=== PATIENT | male | born 1980 | race Caucasian/White ===

== ENCOUNTER 2021-07-20 18:26 | Emergency (ER) | payer MEDICARE ==
[2021-07-20 19:32] LABS: BILIRUBIN NEGATIVE (NEGATIVE); BLOOD 1+ Ery/uL (NEGATIVE); CLARITY CLEAR (CLEAR); COLOR YELLOW (YELLOW); GLUCOSE (U) NORMAL (NORMAL); LEUKOCYTES NEGATIVE Leu/uL (NEGATIVE); NITRITE NEGATIVE (NEGATIVE); PROTEIN NEGATIVE (NEGATIVE); SPECIFIC GRAVITY 1.025 (1.001-1.030); UROBILINOGEN 0.2 mg/dL (0.2-1.0)
[2021-07-20 19:38] LABS: SQUAMOUS EPITHELIAL CELLS RARE
[2021-07-20 21:31] LABS: BASOPHIL 0.5 % (0-2); EOSINOPHIL 4.2 % (0-5); HCT 47.3 % (42.0-52.0); HGB 16.2 g/dl (13.2-18.0); LYMPHOCYTE 16.5 % (15-48); MCH 29.7 pg (25.0-31.0); MCHC 34.2 g/dL (32.0-36.0); MCV 86.6 fL (78.0-100.0); MONOCYTE 4.8 % (0-12); MPV 9.6 fL (6.0-9.5); NEUTROPHIL 73.5 % (41-80); NRBC 0; PLT 289 K/uL (150-400); RBC 5.46 M/uL (4.70-6.00); RDW 12.5 % (11.5-14.0); WBC 8.1 K/uL (4.0-10.5)
[2021-07-20 21:54] LABS: ALBUMIN 3.4 g/dL (3.4-5.0); BILIRUBIN - TOTAL 0.2 mg/dL (0.2-1.0); BUN/CREAT RATIO (CALC) 7.3 RATIO; CREATININE 1.09 mg/dL (0.67-1.17); TOTAL PROTEIN 7.4 g/dL (6.4-8.2)
[2021-07-20] MEDS ORDERED: NORCO 5-325 TA1 EACH PO (22:59)
[2021-07-20] MEDS ORDERED: CIPRO500 MG PO (22:59)
[2021-07-20] MEDS ORDERED: BENTYL10 MG PO (22:59)
[2021-07-20] MEDS ORDERED: METRONIDAZOLE500 MG PO (22:59)
== END 2021-07-20 23:14 | disposition home or self-care (01) ==
LOC: FER 18:26
PROVIDERS: Nurse Practitioner Family
DX: K52.9 Noninfective gastroenteritis and colitis, unspecified (principal); Z88.0 Allergy status to penicillin; Z88.1 Allergy status to other antibiotic agents
CPT/HCPCS: 36415; 80053; 81001; 83690; 85025; J1100; J1885; J2405; J7030; Q9967